=== PATIENT | male | born 1965 | race Caucasian/White ===

== ENCOUNTER 2018-01-23 11:36 | Outpatient (CLI) | payer MEDICARE ==
--- NOTE | 2018-01-23 13:43 | Ultrasound Report ---
Procedure Date: 01/23/2018 Accession Number: [id number] / [id number] Procedure: US - Head or Neck Soft Tissue CPT Code: FULL RESULT: EXAM: Head or Neck Soft Tissue DATE: 01/23/2018 12:03 PM CLINICAL HISTORY: LIPOMA, the patient relates a history of increasing size over 4 months and pain in the region of the right hinduism. COMPARISON: None. TECHNIQUE: Real time sonographic imaging of the focal palpable lump in the region of the right hinduism was obtained. FINDINGS: No definite mass or collection is identified. A relatively hypoechoic area architecturally similar to surrounding tissue raises the question of a subtle lipoma. IMPRESSION: No definite mass or collection. RADIA
== END 2018-01-23 11:37 | disposition home or self-care (01) ==
LOC: DI 11:36
PROVIDERS: ATTEND Family Medicine
DX: D17.0 Benign lipomatous neoplasm of skin and subcutaneous tissue of head, face and neck (principal)
CPT/HCPCS: 76536

== ENCOUNTER 2020-11-16 19:18 | Emergency (ER) | payer MEDICARE ==
[2020-11-16] MEDS ORDERED: BUFFERED LIDOCAINE 10 ML SYRINGE SUBQ STA (21:18)
[2020-11-16] MEDS ORDERED: TETANUS/DIPHTHERIA/PERTUSSIS 0.5 ML SYRINGE IM ONE (21:18)
[2020-11-16] MEDS ORDERED: BACITRACIN ZINC OINT 1 PACKET TOP STA (21:51)
--- NOTE | 2020-11-16 21:53 | ED Physician Documentation ---
History of Present Illness - Stated complaint Stated Complaint: LT WRIST LAC - Chief complaint Chief Complaint: Laceration - Additonal information Additional information: 55-year-old male presents the emergency department for evaluation of a left wrist laceration sustained this evening when removing a tarp from the bed of his truck. He is not sure what he scraped his hand against but certainly something sharp that left a 9 cm laceration on the dorsum of the wrist from the base of the index metacarpal to the distal radius. Unknown last tetanus. Patient is right-hand. Review of Systems Constitutional: reports: Reviewed and negative Ears: reports: Reviewed and negative Nose: reports: Reviewed and negative Throat: reports: Reviewed and negative Cardiac: reports: Reviewed and negative Respiratory: reports: Reviewed and negative GI: reports: Reviewed and negative : reports: Reviewed and negative Skin: reports: Laceration (s) (dorsum left hand) PD PAST MEDICAL HISTORY - Present Medications Home Medications: Ambulatory Orders Medication Instructions Recorded Confirmed No Known Home Medications 11/16/20 11/16/20 - Allergies Allergies/Adverse Reactions: Allergies Allergy/AdvReac Type Severity Reaction Status Date / Time No Known Drug Allergies Allergy Verified 11/16/20 19:31 - Social History Does the pt smoke?: No Smoking Status: Never smoker PD ED PE EXPANDED - General General: Alert, In Pain - Extremities Extremities: Left hand (9 cm laceration dorsum left hand. Nomal flexion and extension of wrist agiast resistance. Normal grasp of hand. 2+ radial pulse) Results - Vitals Vitals: Vital Signs - 24 hr 11/16/20 19:31 Temperature 37 C Heart Rate 97 Respiratory 18 Rate Blood Pressure 162/124 H O2 Saturation 96 Oxygen O2 Source Room air Procedures - Laceration (location) left wrist Wound type: Linear, Into subcut fat Neurovascular status: Sensory intact, Motor intact, Vascular intact Anesthesia: Lidocaine 1% Wound preparation: Chlorhexadine, Irrigated copiously NS Skin layer closure: Ashley (8 ashley placed) Other: Patient tolerated well, No complications, Neurovascular intact, Tetanus booster given PD MEDICAL DECISION MAKING - ED course Complexity details: reviewed results, re-evaluated patient, d/w patient, d/w family ED course: 55-year-old male presents emergency department for evaluation of the left wrist laceration sustained prior to arrival. Tetanus was updated today. Laceration was on the dorsum of the left wrist but on exam no findings consistent with tendon injury or findings to suggest neurovascular compromise. This laceration was closed with 8 ashley. Clean appearance and timely closure will defer antibiotics. Emergent return precautions discussed. Departure - Departure Disposition: 01 Home, Self Care Clinical Impression: Laceration of left wrist Qualifiers: Encounter type: initial encounter Qualified Code(s): S61.512A - Laceration without foreign body of left wrist, initial encounter Condition: Stable Record reviewed to determine appropriate education?: Yes Instructions: ED Laceration All Comments: Your ashley should be removed in 10 days. In 24 hours you may remove the dressing wash gently with warm soap and water, apply any antibiotic ointment and a simple bandage. Your tetanus is up-to-date. Please attempt to keep your wound clean and dry. Do not submerge it in dirty dishwater or bath water. Return to the emergency department if you have any concerns of infection such as redness, fevers milky drainage increased pain.
[2020-11-16 22:16] VITALS: BP 137/69
== END 2020-11-16 22:14 | disposition home or self-care (01) ==
LOC: ED 19:18
DX: S61.512A Laceration without foreign body of left wrist, initial encounter (principal); W26.9XXA Contact with unspecified sharp object(s), initial encounter; Y93.89 Activity, other specified; Z23 Encounter for immunization
CPT/HCPCS: 12004; 90471; 90715; 99282; 99283; A9270

== ENCOUNTER 2023-09-29 15:33 | Outpatient (CLI) | payer MEDICARE ==
[2023-09-29 18:54] LABS: BASOPHILS # (AUTO) 0.1 10^3/uL (0.0-0.1); BASOPHILS % (AUTO) 0.7 %; EOSINOPHILS # (AUTO) 0.2 10^3/uL (0.0-0.7); EOSINOPHILS % (AUTO) 2.6 %; HCT - HEMATOCRIT 48.7 % (42.0-52.0); HGB - HEMOGLOBIN 15.2 g/dL (14.0-18.0); LYMPHOCYTES % (AUTO) 22.8 %; MEAN CORPUSCULAR HGB CONC 31.2 g/dL (32.0-36.0); MEAN CORPUSCULAR VOLUME 83.2 fL (80.0-94.0); MEAN PLATELET VOLUME 8.7 fL (7.4-11.4); MONOCYTES # (AUTO) 0.6 10^3/uL (0.0-1.0); MONOCYTES % (AUTO) 6.5 %; NEUTROPHILS # (AUTO) 5.8 10^3/uL (1.5-6.6); NEUTROPHILS % (AUTO) 67.1 %; PLT - PLATELET COUNT 249 10^3/uL (130-450); RED BLOOD COUNT 5.85 10^6/uL (4.70-6.10); WHITE BLOOD COUNT 8.6 x10^3/uL (4.8-10.8)
[2023-09-29 19:07] LABS: CALCIUM 10.1 mg/dL (8.5-10.3); CREATININE 1.1 mg/dL (0.6-1.3)
== END 2023-09-29 15:34 | disposition home or self-care (01) ==
LOC: LAB.N 15:33
PROVIDERS: ATTEND Internal Medicine
DX: I25.119 Atherosclerotic heart disease of native coronary artery with unspecified angina pectoris (principal); I10 Essential (primary) hypertension
CPT/HCPCS: 36415; 80048; 85025